=== PATIENT | female | born 1985 | race African-American/Black ===

== ENCOUNTER 2018-10-07 06:55 | Inpatient (IN) | payer OTHER ==
[2018-10-07] MEDS ORDERED: LIDOCAINE HCL 1% PRESERVATIVE FREE - 30ML VIAL ONE (07:37)
[2018-10-07] MEDS ORDERED: DEXTROSE 5%-LACTATED RINGERS 1,000 ML IV SCH (08:00)
--- NOTE | 2018-10-07 08:00 | PN ---
Delivery - Delivery Vaginal Delivery: Spontaneous Type of Anesthesia: Local Episiotomy/Laceration: 2nd degree EBL (cc): 300 Remarks - Remarks Remarks: Normal spontaneous vaginal delivery of a live infant boy over second degree laceration. Nose / Oropharynx suctioned @ perineum. Nuchal cord x 1 clamped and cut. Placenta expelled spontaneously intact. Laceration repaired with 2.0 Chromic.
--- NOTE | 2018-10-07 08:03 | HP ---
Past Medical History - Admission Chief Complaint: Labor pain History of Present Illness: 32 yo @ 39 weeks gestation, EDC 10/11/18, admitted for labor pain. Upon admission she was 8cm dilated. History Source: Patient Limitations to Obtaining History: No Limitations - Past Medical History ...: 2 ...Para: 1 ...EDC by Keith: 10/11/18 - Past Surgical History Past Surgical History: Yes: None Hx Myomectomy: No Hx Transabdominal Cerclage: No - Alcohol/Substance Use Hx Alcohol Use: No History of Substance Use: reports: None - Social History Usual Living Arrangement: Yes: With Spouse History of Recent Travel: No Home Medications - Allergies Allergies/Adverse Reactions: Allergies Allergy/AdvReac Type Severity Reaction Status Date / Time No Known Allergies Allergy Verified 10/07/18 07:53 Family Disease History - Family Disease History Family History: Unremarkable Review of Systems - Review of Systems Constitutional: reports: No Symptoms Eyes: reports: No Symptoms HENT: reports: No Symptoms Neck: reports: No Symptoms Cardiovascular: reports: No Symptoms Respiratory: reports: No Symptoms Gastrointestinal: reports: No Symptoms Genitourinary: reports: Pain Breasts: reports: No Symptoms Reported Musculoskeletal: reports: No Symptoms Integumentary: reports: No Symptoms Neurological: reports: No Symptoms Endocrine: reports: No Symptoms Hematology/Lymphatic: reports: No Symptoms Psychiatric: reports: No Symptoms Pain Intensity: 9 Physical Exam - Maternity Constitutional: Yes: Well Nourished Eyes: Yes: Conjunctiva Clear HENT: Yes: Atraumatic Neck: Yes: Supple Cardiovascular: Yes: Regular Rate and Rhythm Lungs: Clear to auscultation - Abdominal Exam/OB Number of Fetuses: Single Presentation: Vertex - Vaginal Exam/OB Dilatation (cm): 8 Effacement (%): 100 Amniotic Membrane Status: Ruptured Amniotic Fluid: Yes: Clear Presentation: Vertex/Position Station: 0 - Physical Exam Musculoskeletal: Yes: WNL Extremities: Yes: WNL ...Motor Strength: WNL Psychiatric: Yes: Alert, Oriented Problem List - Problems (1) Pain during labor Code(s): O99.89 - OTH DISEASES AND CONDITIONS COMPL PREG/CHLDBRTH; R52 - PAIN, UNSPECIFIED Assessment/Plan Active labor Admit to L&D Anticipate
[2018-10-07 08:43] VITALS: BMI 29.2
[2018-10-07] MEDS ORDERED: METHYLERGONOVINE MALEATE 0.2 MG/1 ML AMP IM PRN (08:50)
[2018-10-07] MEDS ORDERED: BENZOCAINE 20% 57 GM BOTTLE TP PRN (08:50)
[2018-10-07] MEDS ORDERED: BISACODYL 10 MG SUPP.RECT RC PRN (08:50)
[2018-10-07] MEDS ORDERED: WITCH HAZEL 50% (TUCKS) 40 PAD/JAR PAD TP PRN (08:50)
[2018-10-07] MEDS ORDERED: BENZOCAINE 28 GM HEMORRHOIDAL OINTMENT TP PRN (08:50)
[2018-10-07] MEDS ORDERED: OXYTOCIN 20 UNITS in 0.9% NS 20 UNIT/1,000 ML INFUS.BAG IV SCH (09:00)
[2018-10-07] MEDS ORDERED: D5W-LR W/ 20 UNITS OXYTOCIN 20 UNIT/1,000 ML INFUS.BAG IV SCH (09:00)
[2018-10-07 09:34] LABS: BASO % 0.5 % (0-2.0); EOS % 0.1 % (0-4.5); HEMATOCRIT 33.9 % (32.4-45.2); HEMOGLOBIN 11.8 GM/dL (10.7-15.3); LYMPH % 7.1 % (8-40); MCH 31.4 pg (25.7-33.7); MCHC 34.9 g/dl (32.0-36.0); MEAN PLT VOLUME 10.3 fl (7.5-11.1); MONO % 3.2 % (3.8-10.2); NEUT % 89.1 % (42.8-82.8); PLATELET COUNT 159 K/MM3 (134-434); RBC 3.77 M/mm3 (3.60-5.2); RDW 14.2 % (11.6-15.6); WHITE BLOOD COUNT 10.6 K/mm3 (4.0-10.0)
[2018-10-07 09:51] LABS: INR 0.94 (0.83-1.09); PROTHROMBIN TIME (PATIENT) 11.1 SEC (9.7-13.0)
[2018-10-07 10:12] LABS: ALBUMIN 2.6 g/dl (3.4-5.0); ALK PHOS 174 U/L (45-117); ANION GAP 13 MMOL/L (8-16); BILIRUBIN,TOTAL 0.5 mg/dL (0.2-1); BLOOD UREA NITROGEN 14 mg/dL (7-18); CALCIUM 8.5 mg/dL (8.5-10.1); CHLORIDE 106 mmol/L (98-107); CO2 19 mmol/L (21-32); CREATININE 0.7 mg/dL (0.55-1.3); GLUCOSE,RANDOM 107 mg/dL (74-106); SGOT/AST 18 U/L (15-37); SGPT/ALT 20 U/L (13-61); SODIUM 138 mmol/L (136-145); TOT PROT 6.2 g/dl (6.4-8.2)
[2018-10-07] MEDS: FERROUS SO4 325 MG TABLET (FP) PO SCH ×2 (11:03→21:05)
[2018-10-07] MEDS: PRENATAL VITAMINS W/ FOLIC ACID TABLET (FP) PO SCH (11:04)
[2018-10-07 13:21] LABS: RPR NONREACTIVE (NONREACTIVE)
[2018-10-07] MEDS: ACETAMINOPHEN 325 MG TABLET (FP) PO PRN (17:36)
[2018-10-07] MEDS: IBUPROFEN 600 MG TABLET (FP) PO PRN (17:38)
[2018-10-07] MEDS: SENNOSIDES/DOCUSATE COMBO (SENNA PLUS) TABLET (UD) PO PRN (20:51)
[2018-10-08 06:05] LABS: BASO % 0.2 % (0-2.0); EOS % 0.5 % (0-4.5); HEMATOCRIT 31.1 % (32.4-45.2); MCH 31.6 pg (25.7-33.7); MCHC 35.5 g/dl (32.0-36.0); MEAN PLT VOLUME 9.6 fl (7.5-11.1); MONO % 5.5 % (3.8-10.2); NEUT % 78.8 % (42.8-82.8); PLATELET COUNT 162 K/MM3 (134-434); RBC 3.49 M/mm3 (3.60-5.2); RDW 13.9 % (11.6-15.6); WHITE BLOOD COUNT 9.5 K/mm3 (4.0-10.0)
[2018-10-08] MEDS: PRENATAL VITAMINS W/ FOLIC ACID TABLET (FP) PO SCH (09:55)
[2018-10-08] MEDS: FERROUS SO4 325 MG TABLET (FP) PO SCH ×2 (09:55→21:10)
[2018-10-08 11:14] LABS: HBsAG SCREEN Negative (Negative)
--- NOTE | 2018-10-08 20:22 | PN ---
Progress Note (short form) - Note Progress Note: ppd 1 doing well, no c/o ,voids ok CBC, BMP 10/08/18 05:55 10/07/18 09:05 Last Vital Signs Temp Pulse Resp BP Pulse Ox 98.5 F 87 18 120/65 100 10/08/18 09:14 10/08/18 09:14 10/08/18 09:14 10/08/18 09:14 10/07/18 08:45 abdomen soft, non tender , no cva uterus firm lochia mild no calf tenderness plan ambulate, for d/c home in am
[2018-10-08] MEDS: SENNOSIDES/DOCUSATE COMBO (SENNA PLUS) TABLET (UD) PO PRN (21:11)
[2018-10-08] MEDS: ACETAMINOPHEN 325 MG TABLET (FP) PO PRN (21:13)
[2018-10-08] MEDS: IBUPROFEN 600 MG TABLET (FP) PO PRN (21:13)
[2018-10-09] MEDS: PRENATAL VITAMINS W/ FOLIC ACID TABLET (FP) PO SCH (10:30)
[2018-10-09] MEDS: FERROUS SO4 325 MG TABLET (FP) PO SCH (10:30)
--- NOTE | 2018-10-09 11:12 | DS ---
Physical Exam-MOBILE DESIGNER Vital Signs: Vital Signs Temperature 97.9 F 10/08/18 21:00 Pulse Rate 94 H 10/08/18 21:00 Respiratory Rate 18 10/08/18 21:00 Blood Pressure 108/56 L 10/08/18 21:00 O2 Sat by Pulse Oximetry (%) 100 10/07/18 08:45 Constitutional: Yes: Well Nourished, No Distress, Calm Eyes: Yes: WNL, Conjunctiva Clear, EOM Intact HENT: Yes: WNL, Atraumatic, Normocephalic Neck: Yes: WNL, Supple, Trachea Midline Cardiovascular: Yes: WNL, Regular Rate and Rhythm Respiratory: Yes: WNL, Regular, CTA Bilaterally Gastrointestinal: Yes: WNL ...Rectal Exam: Yes: WNL Renal/: Yes: WNL External Genitalia: Yes: Normal ....Post : Yes: Uterus firm, Uterus non-tender, Slight lochia rubra Breast(s): Yes: WNL Musculoskeletal: Yes: WNL Extremities: Yes: WNL Edema: No Integumentary: Yes: WNL Neurological: Yes: WNL, Alert, Oriented ...Motor Strength: WNL Psychiatric: Yes: WNL, Alert, Oriented Labs: CBC, BMP 10/08/18 05:55 10/07/18 09:05 Delivery - Delivery Vaginal Delivery: Spontaneous Type of Anesthesia: Local Episiotomy/Laceration: Perineal Extension/lac, 2nd degree EBL (cc): 300 Delivery, Single - Stages of Labor Date 1st Stage Initiatied: 10/07/18 Time 1st Stage Initiated: 00:00 Date 2nd Stage Initiated: 10/07/18 Time 2nd Stage Initiated: 07:25 Date of Delivery: 10/07/18 Time of Delivery: 07:30 Time Placenta Delivered: 07:35 Placenta: Yes: Spontaneous - Condition of Infant Senior Planning Analyst/Reinforcing Bar Setter Present: [place]: Brooks Watkins Gender: Male Weight: 6 lb 11 oz Position: Left, OA - 1 Minute Total Score: 8 5 Minutes Total Score: 9 - [place] Feeding Plan Initial Plan: Elected not to breastfeed exclusively throughout hospitalization Discharge Summary Reason For Visit: LABOR Current Active Problems Pain during labor (Acute) Procedures: Principal: - Instructions - Home Medications Comprehensive Discharge Medication List: Ambulatory Orders Folic Acid 1 mg PO DAILY 10/07/18 [place]-3 Fatty Acids [[place]-3] 1,000 mg PO DAILY 10/07/18 Pnv No.95/Ferrous Fum/Folic AC [ Vitamin Tablet] 1 each PO DAILY
[2018-10-09 11:26] VITALS: BP 103/65; PULSE 89; TEMP 98.1
[2018-10-09] MEDS: ACETAMINOPHEN 325 MG TABLET (FP) PO PRN (13:04)
[2018-10-09] MEDS: IBUPROFEN 600 MG TABLET (FP) PO PRN (13:05)
== END 2018-10-09 14:15 | disposition home or self-care (01) | DRG 807 ==
LOC: JLDR 06:55 → J3W 10:31
PROVIDERS: ADMIT Obstetrics & Gynecology; ATTEND Obstetrics & Gynecology
PROC: 0KQM0ZZ Repair Perineum Muscle, Open Approach (ICD-10-PCS; principal; 2018-10-07)
PROC: 10E0XZZ Delivery of Products of Conception, External Approach (ICD-10-PCS; 2018-10-07)
PROC: 0W8NXZZ Division of Female Perineum, External Approach (ICD-10-PCS; 2018-10-07)
DX: O70.1 Second degree perineal laceration during delivery (principal); Z37.0 Single live birth; Z3A.39 39 weeks gestation of pregnancy
CPT/HCPCS: 36415; 59409; 80053; 85025; 85610; 85730; 86593; 86762; 86850; 86900; 86901; 87340; 87389